=== PATIENT | male | born 1980 | race Hispanic/Latino ===

== ENCOUNTER 2021-01-03 11:27 | Emergency (ER) | payer BC ==
[~2021-01-03] VITALS: Ht 182.9 cm; Wt 110.7 kg
[2021-01-03] MEDS ORDERED: MECLIZINE HCL 12.5 MG TAB PO ONE (13:15)
== END 2021-01-03 17:00 | disposition home or self-care (01) ==
LOC: FSED 13:05
DX: R42 Dizziness and giddiness (principal); R11.2 Nausea with vomiting, unspecified
CPT/HCPCS: 70450; 80053; 82553; 84484; 85025; 93005; 99284